=== PATIENT | female | born 1950 | race African-American/Black ===

== ENCOUNTER 2020-05-05 02:36 | Inpatient (IN) ==
[2020-05-05] MEDS ORDERED: niCARdipine INJ 25 MG in SODIUM CHLORIDE 0.9% 240 ML IV PRN (02:47)
[2020-05-05] MEDS ORDERED: niCARdipine 25 MG/10 ML VIAL IV ONE (02:49)
[2020-05-05] MEDS ORDERED: ONDANSETRON 4 MG/2 ML VIAL ONE (02:49)
[2020-05-05] MEDS ORDERED: NITROGLYCERIN 2% OINT 1 INCH/GM PACK TOP ONE (02:50)
[2020-05-05] MEDS ORDERED: MORPHINE 4 MG/1 ML VIAL ONE (02:50)
[2020-05-05] MEDS ORDERED: FUROSEMIDE 100 MG/10 ML VIAL ONE (02:51)
[2020-05-05] MEDS ORDERED: MORPHINE 4 MG/1 ML VIAL IV STA (02:52)
[2020-05-05] MEDS ORDERED: FUROSEMIDE 100 MG/10 ML VIAL IV STA (02:52)
[2020-05-05] MEDS ORDERED: ALBUTEROL/IPRATROPIUM 3 ML NEB RESP TX STA (02:52)
[2020-05-05] MEDS ORDERED: methylPREDNISolone SOD SUC 125 MG/2 ML VIAL IV STA (02:52)
[2020-05-05] MEDS ORDERED: NITROGLYCERIN 2% OINT 1 INCH/GM PACK TOP STA (02:52)
[2020-05-05] MEDS ORDERED: ASPIRIN 325 MG TABLET PO STA (02:52)
[2020-05-05] MEDS ORDERED: ONDANSETRON 4 MG/2 ML VIAL IV STA (02:52)
[2020-05-05 03:14] LABS: ABG Base Excess -1.4 MMOL/L (-2.5-2.5); ABG HCO3 22.8 MMOL/L (20-26); ABG Oxygen Saturation 79.4 % (95-100); ABG PCO2 49.1 MM HG (35-48); ABG PH 7.322 (7.35-7.45); ABG PO2 51.3 MM HG (80-95)
[2020-05-05 03:15] LABS: Basophils # 0.1 10*3/uL (0.0-0.2); Basophils % 0.5 % (0.0-0.8); Eosinophils # 0.1 10*3/uL (0.0-0.87); Eosinophils % 1.1 % (0.00-10.9); Hematocrit 46.8 VOL% (35.7-47.0); Hemoglobin 15.4 GM/DL (12.0-16.0); Immature Granulocytes % 0.4 %; Immature Granulocytes Absolute 0.04 #; Lymphocytes # 3.1 10*3/uL (1.4-4.0); Lymphocytes % 31.4 % (21.3-54.2); Mean Corpuscular HGB Conc 32.9 GM/DL (32-36); Mean Corpuscular Volume 99.6 FL (87-102); Mean Platelet Volume 11.3 FL (9.6-12.0); Neutrophils % 61.6 % (38.7-73.9); Platelet Count 151 T/CUMM (130-400); White Blood Count 9.8 T/CUMM (4-12)
[2020-05-05 03:31] LABS: Albumin 3.4 G/DL (3.4-5.0); Bilirubin,Total 0.5 MG/DL (0.2-1.0); Calcium 9.2 MG/DL (8.5-10.1); Osmolality,Calculated 286.3 MOS/KG (273-304); Total Protein 7.3 G/DL (6.4-8.3)
[2020-05-05 03:35] LABS: PT Patient Result 10.3 SECS (9.8-11.9)
[2020-05-05] MEDS ORDERED: POTASSIUM CHLORIDE 20 MEQ TABLET PO STA (03:52)
[2020-05-05] MEDS ORDERED: ENOXAPARIN 100 MG/ML SYRINGE SUBCUT STA (03:57)
[2020-05-05 04:16] LABS: Amorphous Crystals,Urine Occasional /HPF (Few); Bacteria,Urine Occasional /HPF (Few); Bilirubin,Urine Negative (Negative); Blood, Urine Negative (Negative); Glucose,Urine (UA) Negative (Negative); Hyaline Casts,Urine 4 /LPF (0-3); Ketones,Urine Negative (Negative); Mucus,Urine Occasional /LPF (Occasional); Nitrite,Urine Negative (Negative); Protein,Urine 30 MG/DL; RBC,Urine 3 /HPF (0-4); Squamous Epithelial Cell,Urine Occasional /HPF (0-10); Urine Appearance CLEAR (Clear); Urine Color Straw (Yellow); Urine Specific Gravity 1.005 (1.001-1.035); Urine Urobilinogen < 2.0 EU/DL (0.2-1.0); WBC,Urine <1 /HPF (0-6)
[2020-05-05 04:39] LABS: Barbiturates Screen,Urine Negative (Negative); Benzodiazepines Screen,Urine Negative (Negative); Cannabinoid Screen,Urine Positive (Negative); Opiate Screen,Urine Positive (Negative); Phencyclidine Screen,Urine Negative (Negative)
[2020-05-05] MEDS ORDERED: ENOXAPARIN 60 MG/0.6 ML SYRINGE ONE (05:05)
[2020-05-05] MEDS ORDERED: NICOTINE 21 MG/24 HR PATCH TRANSDERM PRN (05:10)
[2020-05-05] MEDS ORDERED: GLUCAGON 1 MG VIAL IM PRN (05:10)
[2020-05-05] MEDS ORDERED: DEXTROSE 50% 25 GM/50 ML VIAL IV PRN (05:10)
[2020-05-05] MEDS ORDERED: ONDANSETRON 4 MG/2 ML VIAL IV PRN (05:10)
[2020-05-05] MEDS ORDERED: ACETAMINOPHEN 325 MG TABLET PO PRN (05:10)
[2020-05-05] MEDS ORDERED: MORPHINE 4 MG/1 ML VIAL IV PRN (05:10)
[2020-05-05] MEDS ORDERED: guaiFENesin/DM ER 600-30 MG TABLET PO PRN (05:10)
[2020-05-05] MEDS ORDERED: diphenhydrAMINE CAP 25 MG CAPSULE PO PRN (05:10)
[2020-05-05] MEDS ORDERED: DEXTROSE 50% 25 GM/50 ML SYRINGE IV PRN (05:22)
[2020-05-05 08:20] LABS: Risk Ratio 2.11; VLDL CHOLESTEROL 29.2 MG/DL
[2020-05-05 08:36] LABS: ABG Base Excess 5.2 MMOL/L (-2.5-2.5); ABG HCO3 28.9 MMOL/L (20-26); ABG Oxygen Saturation 92.1 % (95-100); ABG PCO2 44.8 MM HG (35-48); ABG PH 7.438 (7.35-7.45); ABG PO2 64.9 MM HG (80-95); ABG TCO2 25.7 MMOL/L (23-27)
[2020-05-05] MEDS: ALBUTEROL/IPRATROPIUM 3 ML NEB RESP TX SCH ×2 (08:45→19:37)
[2020-05-05 08:48] LABS: Ferritin 78.6 ng/ml (8-252)
[2020-05-05] MEDS: SACUBITRIL/VALSARTAN 49-51 MG TABLET PO SCH ×2 (09:04→20:44)
[2020-05-05] MEDS: carvediloL 12.5 MG TABLET PO SCH ×2 (09:05→20:44)
[2020-05-05] MEDS: FUROSEMIDE 40 MG/4 ML VIAL IV SCH ×2 (09:05→16:27)
[2020-05-05 09:46] LABS: Troponin I 0.705 NG/ML (0.00-0.045)
[2020-05-05] MEDS: INSULIN REGULAR 100 UNIT/ML SUBCUT SCH ×4 (09:56→20:47)
[2020-05-05] MEDS: hydrALAZINE 20 MG/1 ML VIAL IV PRN (10:14)
[2020-05-05] MEDS ORDERED: INFLUENZA VIRUS VACCINE 0.5 ML SYRINGE IM ONE (10:32)
[2020-05-05 11:17] LABS: Troponin I 0.671 NG/ML (0.00-0.045)
[2020-05-05] MEDS: methylPREDNISolone SOD SUC 40 MG/1 ML VIAL IV SCH (20:44)
[2020-05-06] MEDS: ALBUTEROL/IPRATROPIUM 3 ML NEB RESP TX SCH ×4 (02:50→20:04)
[2020-05-06 06:31] LABS: Basophils % 0.1 % (0.0-0.8); Hemoglobin 14.8 GM/DL (12.0-16.0); Immature Granulocytes % 0.5 %; Immature Granulocytes Absolute 0.05 #; Lymphocytes % 9.3 % (21.3-54.2); Mean Corpuscular HGB Conc 33.6 GM/DL (32-36); Mean Corpuscular Volume 96.5 FL (87-102); Mean Platelet Volume 11.5 FL (9.6-12.0); Monocytes % 3.9 % (1.7-12.7); Neutrophils % 86.2 % (38.7-73.9); Platelet Count 212 T/CUMM (130-400); Red Blood Count 4.56 MC/CUMM (3.8-5.5); Red Cell Distribution Width 14.8 % (9.3-17.3); White Blood Count 10.9 T/CUMM (4-12)
[2020-05-06 06:49] LABS: Albumin 3.1 G/DL (3.4-5.0); Bilirubin,Total 0.6 MG/DL (0.2-1.0); Calcium 9.3 MG/DL (8.5-10.1); Osmolality,Calculated 276.8 MOS/KG (273-304); Total Protein 7.1 G/DL (6.4-8.3)
[2020-05-06 06:56] LABS: Ferritin 58.1 ng/ml (8-252)
[2020-05-06 07:28] LABS: Osmolality,Calculated 283.3 MOS/KG (273-304)
[2020-05-06] MEDS ORDERED: cloNIDine 0.1 MG TABLET PO PRN (07:28)
[2020-05-06] MEDS: POTASSIUM CHLORIDE 20 MEQ TABLET PO PRN ×4 (08:05→13:36)
[2020-05-06] MEDS ORDERED: ENOXAPARIN 60 MG/0.6 ML SYRINGE SUBCUT SCH (09:00)
[2020-05-06] MEDS: SACUBITRIL/VALSARTAN 49-51 MG TABLET PO SCH ×2 (09:09→20:16)
[2020-05-06] MEDS: ASPIRIN EC 81 MG TABLET PO SCH (09:09)
[2020-05-06] MEDS: carvediloL 12.5 MG TABLET PO SCH ×2 (09:09→20:16)
[2020-05-06] MEDS: FUROSEMIDE 40 MG/4 ML VIAL IV SCH (09:10)
[2020-05-06] MEDS: methylPREDNISolone SOD SUC 40 MG/1 ML VIAL IV SCH (09:12)
[2020-05-06] MEDS: INSULIN REGULAR 100 UNIT/ML SUBCUT SCH ×4 (09:15→20:16)
[2020-05-06] MEDS: ENOXAPARIN 40 MG/0.4 ML SYRINGE SUBCUT SCH (10:25)
[2020-05-06] MEDS: SPIRONOLACTONE 25 MG TABLET PO SCH (11:33)
[2020-05-06] MEDS ORDERED: ROSUVASTATIN 20 MG TABLET PO SCH (21:00)
[2020-05-07] MEDS: ALBUTEROL/IPRATROPIUM 3 ML NEB RESP TX SCH ×3 (00:57→13:45)
[2020-05-07] MEDS: hydrALAZINE 20 MG/1 ML VIAL IV PRN (05:26)
[2020-05-07 05:33] LABS: Basophils % 0.1 % (0.0-0.8); Hematocrit 45.1 VOL% (35.7-47.0); Hemoglobin 15.4 GM/DL (12.0-16.0); Immature Granulocytes % 0.4 %; Immature Granulocytes Absolute 0.04 #; Lymphocytes # 2.2 10*3/uL (1.4-4.0); Lymphocytes % 21.6 % (21.3-54.2); Mean Corpuscular HGB Conc 34.1 GM/DL (32-36); Mean Corpuscular Volume 95.3 FL (87-102); Mean Platelet Volume 11.7 FL (9.6-12.0); Monocytes % 9.7 % (1.7-12.7); Neutrophils % 68.2 % (38.7-73.9); Platelet Count 210 T/CUMM (130-400); Red Blood Count 4.73 MC/CUMM (3.8-5.5); Red Cell Distribution Width 14.6 % (9.3-17.3); White Blood Count 10.2 T/CUMM (4-12)
[2020-05-07 05:51] LABS: Albumin 2.9 G/DL (3.4-5.0); Bilirubin,Total 0.7 MG/DL (0.2-1.0); Calcium 9.3 MG/DL (8.5-10.1); Total Protein 6.7 G/DL (6.4-8.3)
[2020-05-07 05:51] LABS: Calcium 9.3 MG/DL (8.5-10.1)
[2020-05-07] MEDS ORDERED: FUROSEMIDE 40 MG TABLET PO SCH (09:00)
[2020-05-07] MEDS: INSULIN REGULAR 100 UNIT/ML SUBCUT SCH ×2 (09:02→13:22)
[2020-05-07] MEDS: ENOXAPARIN 40 MG/0.4 ML SYRINGE SUBCUT SCH (09:58)
[2020-05-07] MEDS: carvediloL 12.5 MG TABLET PO SCH (09:59)
[2020-05-07] MEDS: SACUBITRIL/VALSARTAN 49-51 MG TABLET PO SCH (09:59)
[2020-05-07] MEDS: ASPIRIN EC 81 MG TABLET PO SCH (09:59)
[2020-05-07] MEDS: SPIRONOLACTONE 25 MG TABLET PO SCH (09:59)
[2020-05-07] MEDS: POTASSIUM CHLORIDE 20 MEQ TABLET PO ONE ×2 (09:59→12:04)
[2020-05-07] MEDS: POTASSIUM CHLORIDE 20 MEQ TABLET PO PRN (10:06)
[2020-05-07] MEDS ORDERED: FLUCONAZOLE 150 MG TABLET PO ONE (11:12)
[2020-05-07] MEDS ORDERED: POTASSIUM CHLORIDE 20 MEQ/15 ML UDCUP PO ONE (11:50)
[2020-05-07 12:40] LABS: Bacteria,Urine Occasional /HPF (Few); Bilirubin,Urine Negative (Negative); Blood, Urine Negative (Negative); Glucose,Urine (UA) Negative (Negative); Ketones,Urine Negative (Negative); Nitrite,Urine Negative (Negative); Protein,Urine Negative; RBC,Urine 4 /HPF (0-4); Squamous Epithelial Cell,Urine Occasional /HPF (0-10); Urine Appearance CLEAR (Clear); Urine Color Straw (Yellow); Urine Specific Gravity 1.003 (1.001-1.035); Urine Urobilinogen < 2.0 EU/DL (0.2-1.0); WBC,Urine 3 /HPF (0-6)
[2020-05-07 13:22] VITALS: BP 120/91
== END 2020-05-07 15:56 | disposition home or self-care (01) | DRG 291 ==
LOC: EDBD → EDUNIT# → N.ED 02:36 → N.EDINP 05:10 → N.CC 07:35 → N.TELEN 08:30
PROVIDERS: ADMIT Internal Medicine; ATTEND Internal Medicine